=== PATIENT | male | born 1955 | race Caucasian/White ===

== ENCOUNTER → 2017-03-13 | Outpatient (CLI) | payer OTHER ==
[~2017-03-13] MED LIST: GLYB5TAB3 PO; SIMV80TA2 PO
--- NOTE | 2017-03-13 14:00 | EXERCISE STRESS ECHO ---
*NOTICE TO RECEIVING LIBERTARIAN AGENCY This information is strictly Confidential and protected under [place] law. [place] law prohibits you from making any further disclosure of this information unless further disclosure is expressly permitted by the written consent of the person to whom it pertains or is authorized by law. A general authorization for the release of medical or other information is not sufficient for this purpose. Hospital accepts no responsibility if the information is made available to any other person, INCLUDING THE PATIENT. Interpretation Summary * Name: DAVID SALAS Study Date: 03/13/2017 10:54 AM BP: 129/75 mmHg * Patient Location: [facility] HR: 76 * : 1955 (M/d/yyyy) Gender: Male Height: 71 in * Age: 61 yrs Ethnicity: [place] Weight: 246 lb * Ordering Physician: Magdalene Owen * Referring Physician: Magdalene Owen PA-C * Performed By: Palmira Dias RDCS * * Reason For Study: PVC's, hypertension, DM II * BSA: 2.3 m2 * -- Conclusions -- * Left ventricular systolic function is normal. * Grade I diastolic dysfunction, (abnormal relaxation pattern). * Mild aortic root dilatation. * Diagnostic exercise echocardiogram without evidence of inducible ischemia. Procedure Details * ECHOEX, CPT #[id number] * ECHO DOPPLER, CPT #[id number] * ECHO COLOR FLOW, CPT #[id number] * A contrast injection of Definity was performed to improve assessment of LV function. * Contrast was injected into an intravenous site in the left arm. * One vial of Definity ultrasound contrast was diluted in normal saline to a total volume of 10 ml. A total of '4' ml of solution was administered during imaging. * Lot # [id number] of Definity utilized for procedure. * Expiration date 1 APR 06. * The attending nurse who injected the contrast agent was Mike Lai RN. Left Ventricular Findings with Stress * Diagnostic exercise echocardiogram without evidence of inducible ischemia. Left Ventricle * The left ventricle is normal in size. * There is normal left ventricular wall thickness. * Ejection Fraction = 50-55%. * Left ventricular systolic function is normal. * Grade I diastolic dysfunction, (abnormal relaxation pattern). * The left ventricular wall motion is normal. Right Ventricle * The right ventricle is normal in size and function. Atria * The left atrial size is normal. * Right atrial size is normal. Mitral Valve * The mitral valve anatomy is normal. * Significant mitral regurgitation is absent. Tricuspid Valve * The tricuspid valve is not well visualized, but is grossly normal. * Significant tricuspid regurgitation is absent. Aortic Valve * The aortic valve is normal in structure and function. * No hemodynamically significant valvular aortic stenosis. * No aortic regurgitation is present. Great Vessels * Mild aortic root dilatation. Pericardium * There is no pericardial effusion. Stress Parameters * Normal baseline electrocardiogram. * Stress ECG: No ST changes. No arrhythmias. * The stress portion of this study was personally supervised by the undersigned interpreting physician. * Rest heart rate was '76' BPM. * Rest blood pressure was '129/75' * Maximum heart rate achieved was 136 bpm. * Maximum heart rate was 86 % of maximum age-predicted heart rate. * Maximum blood pressure was '181/59' * Total exercise time was '4:01' * Maximum exercise MET level achieved was '5.80' METS * Maximum treadmill speed was '2.50' miles per hour. * Maximum treadmill elevation was '12.00'% grade. * Exercise was terminated due to 'achieving target heart rate' Left Ventricular Findings with Stress * Normal baseline EKG without significant changes during exercise Normal HR and BP response to exercise. Normal baseline echocardiogram with minimal augmentation during exercise, but no obvious inducible wall motion abnormalities (image quality was sub-optimal) No symptoms Victor treadmill score: 6 (low risk) MMode 2D Measurements and Calculations IVSd 1.0 cm LVIDd 4.6 cm LVIDs 3.3 cm LVPWd 0.74 cm IVS/LVPW 1.4 FS 27.7 % EDV(Teich) 96.6 ml ESV(Teich) 44.6 ml EF(Teich) 53.8 % EDV(cubed) 96.4 ml ESV(cubed) 36.4 ml EF(cubed) 62.2 % LV mass(C)d 136.2 grams LV mass(C)dI 59.1 grams/m\S\2 SV(Teich) 52.0 ml SI(Teich) 22.6 ml/m\S\2 SV(cubed) 60.0 ml SI(cubed) 26.0 ml/m\S\2 Ao root diam 4.3 cm Ao root area 14.6 cm\S\2 ACS 2.0 cm asc Aorta Diam 3.4 cm LVOT diam 2.0 cm LVOT area 3.2 cm\S\2 LVAd ap4 42.2 cm\S\2 LVLd ap4 9.5 cm EDV(MOD-sp4) 154.1 ml EDV(sp4-el) 159.5 ml LVAs ap4 25.5 cm\S\2 LVLs ap4 7.5 cm ESV(MOD-sp4) 71.0 ml ESV(sp4-el) 74.1 ml EF(MOD-sp4) 53.9 % EF(sp4-el) 53.6 % LVAd ap2 34.7 cm\S\2 LVLd ap2 8.8 cm EDV(MOD-sp2) 112.6 ml EDV(sp2-el) 115.9 ml LVAs ap2 21.9 cm\S\2 LVLs ap2 7.3 cm ESV(MOD-sp2) 55.7 ml ESV(sp2-el) 56.0 ml EF(MOD-sp2) 50.5 % EF(sp2-el) 51.7 % LVLd %diff -7.28 % EDV(MOD-bp) 137.5 ml LVLs %diff -2.94 % ESV(MOD-bp) 63.5 ml EF(MOD-bp) 53.8 % SV(MOD-sp4) 83.1 ml SI(MOD-sp4) 36.1 ml/m\S\2 SV(MOD-sp2) 56.9 ml SI(MOD-sp2) 24.7 ml/m\S\2 SV(MOD-bp) 74.0 ml SI(MOD-bp) 32.1 ml/m\S\2 SV(sp4-el) 85.5 ml SI(sp4-el) 37.1 ml/m\S\2 SV(sp2-el) 60.0 ml SI(sp2-el) 26.0 ml/m\S\2 Doppler Measurements and Calculations MV E max caridad 71.8 cm/sec MV A max caridad 75.2 cm/sec MV E/A 0.95 MV dec time 0.23 sec Ao V2 max 113.8 cm/sec Ao max PG 5.2 mmHg Ao max PG (full) 2.5 mmHg GLENNY(V,A) 2.3 cm\S\2 GLENNY(V,D) 2.3 cm\S\2 AI max caridad 374.6 cm/sec AI max PG 56.1 mmHg AI dec slope 225.5 cm/sec\S\2 AI P1/2t 486.6 msec LV V1 max PG 2.7 mmHg LV V1 max 81.5 cm/sec PA V2 max 104.5 cm/sec PA max PG 4.4 mmHg PA acc slope 728.1 cm/sec\S\2 PA acc time 0.10 sec PI max caridad 139.8 cm/sec PI max PG 7.8 mmHg PI dec slope 137.3 cm/sec\S\2 PI P1/2t 298.2 msec TR max caridad 248.7 cm/sec PA pr(Accel) 34.6 mmHg
== END | disposition home or self-care (01) ==
LOC: C.CPL 10:27
PROVIDERS: ATTEND Physician Assistant
DX: I49.3 Ventricular premature depolarization (principal); I10 Essential (primary) hypertension; E11.9 Type 2 diabetes mellitus without complications